=== PATIENT | female | born 1975 | race Asian ===

== ENCOUNTER 2017-07-14 12:43 | Emergency (ER) | payer SELFPAY ==
[~2017-07-14] VITALS: Ht 157.5 cm; Wt 81.6 kg
[2017-07-14 12:46] VITALS: BP_SYST 148
== END 2017-07-14 13:25 ==
LOC: SED 12:43
DX: G62.9 Polyneuropathy, unspecified (principal); I10 Essential (primary) hypertension
CPT/HCPCS: 99283